=== PATIENT | female | born 1960 | race Caucasian/White ===

== ENCOUNTER → 2016-06-23 | Outpatient (CLI) | payer BC ==
--- NOTE | 2016-06-23 08:17 | US ---
EXAMINATION TYPE: US abdomen complete DATE OF EXAM: 06/23/2016 7:27 AM COMPARISON: No previous CLINICAL HISTORY: Intermittent abdomen pain and nausea x 1 year. EXAM MEASUREMENTS: Liver Length: 12.8cm Gallbladder Wall: 0.2cm CBD: 0.3cm Spleen: 11.5cm Right Kidney: 9.5 x 5.1 x 5.4cm Left Kidney: 10.8 x 4.4 x 5.2cm TECHNOLOGIST IMPRESSION: Pancreas: Obscured by bowel gas Liver: slightly heterogeneous echotexture Gallbladder: Within normal limits Evidence for sonographic Baltazar's sign: No CBD: visualized portions wnl, limited distally by overlying bowel gas Spleen: Within normal limits Right Kidney: 7.1 x 6.1 x 6.9cm cystic area superior pole. This appears simply cystic. Left Kidney: Within normal limits Upper IVC: Within normal limits Abd Aorta: visualized portions appear wnl, proximal and mid portions limited by overlying bowel gas The liver is heterogenous. The intrahepatic portion of the IVC and proximal abdominal aorta are withi n normal limits. There is no evidence of cholelithiasis. Common bile duct is unremarkable. The vis ualized portions of the pancreas are homogenous. The spleen is unremarkable. There is a simple appea ring, 7 cm right renal cyst. IMPRESSION: 7 cm, simple appearing right renal cyst. Normal Values: Liver Length: < 16cm wnl, 17-18cm upper limits, >18cm enlarged Spleen Length = < 13cm Renal Length = 9 - 12cm GB Wall: < 0.3cm CBD: < 0.6cm or < 1.0cm post cholecystectomy
[2016-06-23 11:03] LABS: ALT 77 U/L (9-52); AST 45 U/L (14-36); Alkaline Phosphatase 78 U/L (38-126); Anion Gap 12 mmol/L; Blood Urea Nitrogen 15 mg/dL (7-17); Calcium 9.8 mg/dL (8.4-10.2); Carbon Dioxide 32 mmol/L (22-30); Chloride 102 mmol/L (98-107); Glucose 97 mg/dL (74-99); Non-African American GFR(MDRD) >60 (>60 ml/min/1.73 sqM); Potassium 4.5 mmol/L (3.5-5.1); Sodium 146 mmol/L (137-145)
[2016-06-23 11:33] LABS: Hepatitis B Surface Ag Index 0.06
[2016-06-23 11:51] LABS: Hepatitis C Virus IgG Index 0.02
[2016-06-23 11:52] LABS: Hepatitis C Virus IgG Ab Negative (Negative)
[2016-06-23 12:01] LABS: Iron 136 ug/dL (37-170)
[2016-06-23 12:11] LABS: % Iron Saturation 39.4 % (20-50); Total Iron Binding Capacity 345 ug/dL (265-497)
[2016-06-23 17:15] LABS: ANA w/Reflex to Titer NEGATIVE (NEGATIVE)
== END | disposition home or self-care (01) ==
LOC: RADUSWWP 06:57
PROVIDERS: ATTEND Internal Medicine Gastroenterology
DX: N28.1 Cyst of kidney, acquired (principal); R94.5 Abnormal results of liver function studies
CPT/HCPCS: 76700; 80053; 82103; 82390; 82728; 83516; 83540; 83550; 84165; 86038; 86803; 87340

== ENCOUNTER → 2016-10-07 | Outpatient (CLI) | payer BC ==
--- NOTE | 2016-10-07 15:51 | US ---
EXAMINATION TYPE: US pelvic complete DATE OF EXAM: 10/07/2016 2:46 PM COMPARISON: NONE CLINICAL HISTORY: R10.84 Lower abdominal pain,M54.5 Low back pain. Bilateral intermittent pain that c omes and goes. 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 Uterus: Anteverted wnl 2. Endometrium: wnl 3. Right Ovary: wnl 4. Left Ovary: wnl Spectral, color and waveform doppler imaging shows good arterial and venous flow within the ovaries ; there is no evidence for ovarian torsion. 5. Bilateral Adnexa: wnl 6. Posterior cul-de-sac: no free fluid IMPRESSION: 1. Normal pelvic ultrasound
== END | disposition home or self-care (01) ==
LOC: RADUSWWP 14:01
PROVIDERS: ATTEND Family Medicine
DX: R10.84 Generalized abdominal pain (principal); M54.5 Low back pain
CPT/HCPCS: 76856

== ENCOUNTER → 2017-01-24 | Outpatient (CLI) | payer BC ==
[2017-01-24 10:47] LABS: ALT 78 U/L (9-52); AST 40 U/L (14-36); Alkaline Phosphatase 75 U/L (38-126); Anion Gap 10 mmol/L; Blood Urea Nitrogen 14 mg/dL (7-17); Calcium 9.9 mg/dL (8.4-10.2); Carbon Dioxide 29 mmol/L (22-30); Chloride 103 mmol/L (98-107); Glucose 109 mg/dL (74-99); Non-African American GFR(MDRD) >60 (>60 ml/min/1.73 sqM); Potassium 4.3 mmol/L (3.5-5.1); Sodium 142 mmol/L (137-145); Total Bilirubin 0.8 mg/dL (0.2-1.3); Total Protein 7.7 g/dL (6.3-8.2)
== END | disposition home or self-care (01) ==
LOC: LABWHC1 10:06
PROVIDERS: ATTEND Internal Medicine Gastroenterology
DX: R94.5 Abnormal results of liver function studies (principal)
CPT/HCPCS: 36415; 80053

== ENCOUNTER → 2017-01-25 | Outpatient (CLI) | payer BC ==
--- NOTE | 2017-01-25 09:22 | US ---
EXAMINATION TYPE: US abdomen complete DATE OF EXAM: 01/25/2017 COMPARISON: Complete abdominal ultrasound June 23, 2016 CLINICAL HISTORY: RUQ Pain R10.11. EXAM MEASUREMENTS: Liver Length: 11.6 cm Gallbladder Wall: 0.2 cm CBD: 0.2 cm Spleen: 11.3 cm Right Kidney: 11.3 x 6.3 x 4.7 cm Left Kidney: 10.7 x 3.9 x 4.6 cm Extensive midline bowel gas. Pancreas: Obscured by bowel gas Liver: wnl Gallbladder: wnl Evidence for sonographic Baltazar's sign: no CBD: wnl Spleen: wnl Right Kidney: portions obscured by bowel gas, 2 cysts upper, largest measuring 5.6 x 6.0 x 5.6cm Left Kidney: wnl Upper IVC: wnl Abd Aorta: proximal obscured by overlying bowel gas, otherwise wnl The visualized liver is homogenous. The intrahepatic portion of the IVC and proximal abdominal aorta are within normal limits. There is no evidence of cholelithiasis. Common bile duct is unremarkable . The visualized portions of the pancreas are homogenous. The spleen is unremarkable. Kidneys are symmetric and free of hydronephrosis. No renal lesions are seen. IMPRESSION: No significant new or acute finding is seen to account for patient's symptoms. A large bu t simple appearing cyst right kidney is redemonstrated, Bosniak 2F type cyst due to size.
== END | disposition home or self-care (01) ==
LOC: RADUSWWP 08:17
PROVIDERS: ATTEND Internal Medicine Gastroenterology
DX: N28.1 Cyst of kidney, acquired (principal)
CPT/HCPCS: 76700

== ENCOUNTER → 2018-04-08 | Outpatient (CLI) | payer BC ==
[2018-04-08 11:16] LABS: ALT 38 U/L (9-52); AST 28 U/L (14-36); Albumin 4.6 g/dL (3.5-5.0); Alkaline Phosphatase 65 U/L (38-126); Anion Gap 10 mmol/L; Blood Urea Nitrogen 17 mg/dL (7-17); Calcium 10.2 mg/dL (8.4-10.2); Carbon Dioxide 30 mmol/L (22-30); Chloride 101 mmol/L (98-107); Glucose 99 mg/dL (74-99); Potassium 4.7 mmol/L (3.5-5.1); Sodium 141 mmol/L (137-145); Total Bilirubin 0.9 mg/dL (0.2-1.3); Total Protein 8.1 g/dL (6.3-8.2)
== END ==
LOC: LABWHC1 10:20
PROVIDERS: ATTEND Internal Medicine Gastroenterology
DX: R79.89 Other specified abnormal findings of blood chemistry (principal)
CPT/HCPCS: 36415; 80053

== ENCOUNTER → 2018-09-22 | Outpatient (CLI) | payer BC ==
--- NOTE | 2018-09-25 10:34 | MM ---
Reason for exam: screening (asymptomatic). Last mammogram was performed 2 years and 7 months ago. History: Patient is postmenopausal, history of other cancer, and had first child at age 30. Physical Findings: A clinical breast exam by your physician is recommended on an annual basis and results should be correlated with mammographic findings. MG Screening Mammo w CAD Bilateral CC and MLO view(s) were taken. Prior study comparison: March 08, 2016, bilateral MG screening mammo w CAD. March 05, 2015, bilateral MG diagnostic mammo w CAD ROBY. There are scattered fibroglandular densities. No significant changes when compared with prior studies. ASSESSMENT: Benign, BI-RAD 2 RECOMMENDATION: Routine screening mammogram of both breasts in 1 year.
== END | disposition home or self-care (01) ==
LOC: RADMAMWWP 11:55
PROVIDERS: ATTEND Family Medicine
DX: Z12.31 Encounter for screening mammogram for malignant neoplasm of breast (principal)
CPT/HCPCS: 77067

== ENCOUNTER → 2018-12-18 | Outpatient (CLI) | payer BC ==
--- NOTE | 2018-12-18 15:56 | XR ---
EXAMINATION TYPE: XR chest 2V DATE OF EXAM: 12/18/2018 COMPARISON: NONE HISTORY: Chest pain, trauma one week prior TECHNIQUE: Frontal and lateral views of the chest are obtained. FINDINGS: There is no focal air space opacity, pleural effusion, or pneumothorax seen. The cardiac silhouette size is within normal limits. The osseous structures are intact. IMPRESSION: No acute cardiopulmonary process.
== END | disposition home or self-care (01) ==
LOC: RADXRMAIN 15:27
PROVIDERS: ATTEND Family Medicine
DX: R07.9 Chest pain, unspecified (principal)
CPT/HCPCS: 71046

== ENCOUNTER → 2020-04-11 | Outpatient (CLI) | payer BC ==
--- NOTE | 2020-04-15 08:51 | MM ---
Reason for exam: screening (asymptomatic). Last mammogram was performed 1 year and 7 months ago. History: Patient is postmenopausal, history of other cancer, and had first child at age 30. Physical Findings: A clinical breast exam by your physician is recommended on an annual basis and results should be correlated with mammographic findings. MG Screening Mammo w CAD Bilateral CC and MLO view(s) were taken. Prior study comparison: September 22, 2018, bilateral MG screening mammo w CAD. March 08, 2016, bilateral MG screening mammo w CAD. There are scattered fibroglandular densities. Finding: There is a circumscribed round mass in the left breast. No significant changes in finding since September 22, 2018 and March 08, 2016. ASSESSMENT: Benign, BI-RAD 2 RECOMMENDATION: Routine screening mammogram of both breasts in 1 year.
== END | disposition home or self-care (01) ==
LOC: RADMAMWWP 08:33
PROVIDERS: ATTEND Family Medicine
DX: Z12.31 Encounter for screening mammogram for malignant neoplasm of breast (principal)
CPT/HCPCS: 77067

== ENCOUNTER → 2022-05-25 | Outpatient (CLI) | payer BC ==
--- NOTE | 2022-05-25 09:59 | CTL ---
EXAMINATION TYPE: CT Low Dose Lung DATE OF EXAM ORDERED: 05/25/2022 HISTORY: 61-year-old female Z87.891. 30 pack-year history of smoking, quit 10 years ago. Lung cancer screening CT DLP: 91.[address] CTDI: 2.5 mGy Automated exposure control for dose reduction was used. SCREENING VISIT: Baseline COMPARISON: None TECHNIQUE: Low dose computed tomography scan was performed through the chest with coronal and sagitta l reconstructions. CT DIAGNOSTIC QUALITY: Satisfactory FINDINGS: Heart normal size without pericardial effusion. Mild LAD and RCA coronary artery calcifications are p resent. Conventional arterial supply to the anatomy. Aorta normal caliber. Borderline ectasia upper descendin g thoracic aorta 3.0 cm. No thoracic lymphadenopathy by CT size criteria. Hyperinflation suggesting some degree of underlying emphysema. 4 mm peripheral left lower lobe pulmonary nodule, axial image 220. 6 mm inferior lingular pulmonary nodule, axial image 175. 4 mm left midlung pulmonary nodule along the major fissure likely intrafissural lymph node, axial dinorah ge 137. 5 mm posterior left lower lobe pulmonary nodule, axial image 215. No consolidation or pleural effusion. Visualized upper abdomen shows partial visualization of 2 adjacent versus a complex septated cyst upp er pole right kidney measuring at least 8.2 cm. Further renal ultrasound evaluation recommended to be tter characterize. Bones: Moderate degenerative disc disease mid to lower thoracic spine. Anterior plate spondylosis mid to lower thoracic spine. IMPRESSION: 1. LungRADS Category 3 (probably benign, 1-2% chance of malignancy); a few pulmonary nodules measurin g up to 6 mm on baseline screening. 2. Hyperinflation suggesting some degree of underlying emphysema. 3. Either 2 adjacent cysts versus a complex septated cyst partially visualized upper pole right kidne y measuring at least 8.2 cm. Further ultrasound evaluation to further characterize. CT LUNG RAD AND CT CHEST RECOMMENDATION: Lung-Rad 3 Probably Benign: 6 month follow-up LDCT. S Modifier (other clinically significant findings): S, renal ultrasound as above.
== END | disposition home or self-care (01) ==
LOC: RADCTMAIN 08:25
PROVIDERS: ATTEND Family Medicine
DX: Z12.2 Encounter for screening for malignant neoplasm of respiratory organs (principal); J98.4 Other disorders of lung; Z87.891 Personal history of nicotine dependence
CPT/HCPCS: 71271

== ENCOUNTER → 2022-06-07 | Outpatient (CLI) | payer BC ==
--- NOTE | 2022-06-07 10:01 | US ---
EXAMINATION TYPE: US kidneys/renal and bladder DATE OF EXAM: 06/07/2022 COMPARISON: 01/25/2017 CLINICAL HISTORY: N28.1 CYST OF KIDNEY, ACQUIRED. EXAM MEASUREMENTS: Right Kidney: 10.9 x 4.6 x 4.8 cm Left Kidney: 10.4 x 4.3 x 4.6 cm Right Kidney: Upper lateral pole cyst 4.7 x 4.7 x 4.3cm (Prior 5.6 x 6.0 x 5.6cm). Upper medial pole cyst 2.7 x 2.9 x 2.8cm (Prior 2.6 x 2.3 x 2.2cm) Left Kidney: wnl Bladder: wnl Bilateral Jets seen: Yes There is redemonstration of 2 thin-walled cysts in the right kidney fairly stable in size and appeara nce from prior study. No new suspicious solid or cystic renal mass is seen bilaterally. No hydronephr osis seen bilaterally. The urinary bladder is adequately distended. Bilateral ureteral jets are seen . IMPRESSION: Bosniak type I lesions right kidney redemonstrated. No new solid or cystic renal masses a re noted.
== END | disposition home or self-care (01) ==
LOC: RADUSWWP 08:47
PROVIDERS: ATTEND Family Medicine
DX: N28.1 Cyst of kidney, acquired (principal); N28.9 Disorder of kidney and ureter, unspecified
CPT/HCPCS: 76770

== ENCOUNTER → 2022-12-30 | Outpatient (CLI) | payer BC ==
--- NOTE | 2022-12-30 08:11 | CTL ---
EXAMINATION TYPE: CT Low Dose Lung DATE OF EXAM ORDERED: 12/30/2022 COMPARISON: 05/25/2022 HISTORY: . Low Dose CT Lung Screening CT DLP: 78.[address] CTDI: 2.2 mGy IV CONTRAST USED: None. SCREENING VISIT: Neck and COMPARISON: None. TECHNIQUE: Low dose computed tomography scan was performed through the chest at 1 millimeter thick se ctions and reconstructed images in the coronal plane at [address] DIAGNOSTIC QUALITY: Satisfactory FINDINGS: LUNG NODULES: Nodular density along the left major fissure previously measured 4.2 mm and currently measures 3 mm s een on image 120. Stable 5 mm pulmonary nodule left lower lobe image 198. 5 mm lingular nodule image 159 versus prior measurement of 6 mm. 3 mm nodular density right upper lobe anterolaterally image 137. LUNGS: COPD: Severity: Mild Fibrosis: Severity:None Lymph nodes: None Other findings: None RIGHT PLEURAL SPACE: Effusion: None Calcification: None Thickening: None Pneumothorax: None LEFT PLEURAL SPACE: Effusion: None Calcification: None Thickening: None Pneumothorax: None HEART: Heart Size: Mildly enlarged Coronary calcification: Moderate Pericardial effusion: None OTHER FINDINGS: Upper abdomen: No significant abnormality Bony thorax: Degenerative changes Supraclavicular region: No significant abnormalityOther: No significant abnormalityI IMPRESSION: 1. Stable scattered sub-5 mm pulmonary nodules. 2. Coronary artery calcifications. FOLLOW UP CT CHEST RECOMMENDATION: Follow-up screening in one year CT LUNG RAD: LUNG RAD CATEGORY 2 benign appearance and/or behavior
== END | disposition home or self-care (01) ==
LOC: RADCTMAIN 07:36
PROVIDERS: ATTEND Family Medicine
DX: Z12.2 Encounter for screening for malignant neoplasm of respiratory organs (principal); F17.210 Nicotine dependence, cigarettes, uncomplicated; I25.10 Atherosclerotic heart disease of native coronary artery without angina pectoris; R91.8 Other nonspecific abnormal finding of lung field
CPT/HCPCS: 71271

== ENCOUNTER → 2024-01-04 | Outpatient (CLI) | payer BC ==
--- NOTE | 2024-01-04 12:54 | CTL ---
EXAMINATION TYPE: CT Low Dose Lung DATE OF EXAM ORDERED: 01/04/2024 HISTORY: . Low Dose CT Lung Screening CT DLP: 84.[address] CTDI: 2.2 mGy IV CONTRAST USED: None. SCREENING VISIT: First visit COMPARISON: 12/30/2022 TECHNIQUE: Low dose computed tomography scan was performed through the chest at 1 millimeter thick se ctions and reconstructed images in the coronal plane at [address] DIAGNOSTIC QUALITY: Satisfactory FINDINGS: LUNG NODULES: Stable scattered sub-5 mm pulmonary nodules. LUNGS: COPD: Severity: Mild Fibrosis: Severity:None Lymph nodes: None Other findings: None RIGHT PLEURAL SPACE: Effusion: None Calcification: None Thickening: None Pneumothorax: None LEFT PLEURAL SPACE: Effusion: None Calcification: None Thickening: None Pneumothorax: None HEART: Heart Size: Mildly enlarged Coronary calcification: Mild Pericardial effusion: None OTHER FINDINGS: Upper abdomen: Right adrenal mass measuring approximately 3.7 cm unchanged from 2021 CT. This could b e further evaluated with CT of the adrenal glands. Bony thorax: Degenerative changes Supraclavicular region: No significant abnormalityOther: No significant abnormalityI IMPRESSION: 1. Stable scattered sub-5 mm pulmonary nodules. FOLLOW UP CT CHEST RECOMMENDATION: Follow-up screening in one year CT LUNG RAD: LUNG RAD CATEGORY 2 benign appearance and behavior
== END | disposition home or self-care (01) ==
LOC: RADCTMAIN 06:56
PROVIDERS: ATTEND Internal Medicine
DX: Z12.2 Encounter for screening for malignant neoplasm of respiratory organs (principal); R91.8 Other nonspecific abnormal finding of lung field; Z87.891 Personal history of nicotine dependence
CPT/HCPCS: 71271